=== PATIENT | female | born 1965 | race Caucasian/White ===

== ENCOUNTER 2017-06-02 18:47 | Observation (INO) ==
--- NOTE | 2017-06-02 19:00 | Emergency Department Note ---
Disposition Clinical Impression: Epigastric abdominal pain, Suicidal thoughts Chest pain Qualifiers: Chest pain type: unspecified Qualified Code(s): R07.9 - Chest pain, unspecified Disposition: Still a Patient Condition: Good Instructions: Chest Pain (ED), Abdominal Pain (ED) Reasons to Return/Additional Instructions: Follow-up with your primary care physician in one to 2 days. Discuss setting up outpatient stress test for further evaluation. Information has been provided below for cardiology. Return to the ER for any new or worsening symptoms. Referrals: Krishna Soto, PAC [Primary Care Provider] - Forms: ED Satisfaction Letter, Work/School Release Time of Disposition: 20:25 Abdominal Pain HPI - General Chief Complaint: ED Abdominal Pain Stated Complaint: Abd pain Time Seen by Provider: 06/02/17 18:52 Source: patient, EMS Mode of arrival: ambulatory Limitations: no limitations Nursing Notes Reviewed: Yes Vital Signs Reviewed: Yes - History of Present Illness HPI Narrative: Patient is a 52-year-old female with past medical history of cerebral palsy, COPD, hypertension. She presents today due to chest pain, shortness of breath, abdominal pain. She told nursing staff that she has had chest pain since January. However, she told me that her chest pain started about 4 hours prior to arrival. She describes the pain as sharp, constant pain in the right side of her chest associated with shortness of breath. Denies any nausea, vomiting, sweating. She also admits to epigastric abdominal pain that she describes as sharp in nature as well.. Denies any dysuria, hematuria, vaginal bleeding or discharge Pain Scale: 8 - Related Data Previous Rx's Medication Instructions Recorded Azithromycin [Azithromycin 6-Tab 250 - 500 mg PO DAILY #6 tab 07/18/16 Pack] Promethazine/Dextromethorphan 5 ml PO Q4H PRN #120 ml 07/18/16 [Promethazine-Dm Syrup] predniSONE [Prednisone] 40 mg PO QAM #10 tablet 07/18/16 Azithromycin [Zithromax] 1 applic PO DAILY #6 tablet 07/26/16 Promethazine/Codeine 5 ml PO HS #90 syrup 07/26/16 [Phenergan/Codeine] Ondansetron HCl [Zofran] 4 mg PO Q8H PRN #4 tablet 08/20/16 cephALEXin [Keflex] 500 mg PO BID 5 Days capsule 08/20/16 Allergies Allergy/AdvReac Type Severity Reaction Status Date / Time No Known Allergies Allergy Verified 08/20/16 00:09 All systems ED: reviewed and negative except as stated. Constitutional: Denies: fever Cardiovascular: Reports: chest pain Respiratory: Reports: dyspnea Gastrointestinal: Denies: nausea, vomiting, diarrhea Genitourinary: Denies: urgency, dysuria, frequency, hematuria, discharge Neurological: Denies: weakness, numbness, paresthesias Abdominal Pain PMH - Past Medical History Medical history: Reports: COPD, hypertension, other Female Surgical History: Reports: , orthopedic, other Psychiatric history: Reports: depression - Social History Smoking status: Former smoker Alcohol use: Reports: none Drug use: Reports: none Physical Exam - General Limitations: language barrier General appearance: alert - Head Head exam: atraumatic, normocephalic, normal inspection - Eye Eye exam: Present: normal appearance, PERRL, EOMI - ENT ENT exam: normal exam, normal oropharynx, mucous membranes moist - Neck Neck exam: Present: normal inspection, full ROM, trachea midline - Chest Chest inspection: Present: normal inspection, symmetric chest wall rise, tenderness (Reproducible tenderness on midline and right chest wall). Absent: rash - Respiratory Respiratory exam: Present: normal lung sounds bilaterally - Cardiovascular Cardiovascular exam: Present: regular rate, normal rhythm, normal heart sounds - Abdominal Exam Abdominal exam: Present: soft, tenderness ([id number] epigastric tenderness). Absent: distention, guarding, rebound, rigidity, Green's sign, Rovsing's sign, tenderness at McBurney's Point - Extremities Exam Extremities exam: Present: normal inspection, full ROM. Absent: tenderness, pedal edema - Neurological Exam Neurological exam: Present: alert, oriented X3 - Psychiatric Psychiatric exam: Present: normal affect, normal mood - Skin Skin exam: Present: warm, dry, intact, normal color Course Course Narrative: Patient hypertensive. Otherwise, the rest of the vitals within normal limits. Physical exam showed reproducible right-sided and centered chest wall pain. She had mild to moderate epigastric tenderness. Otherwise, negative Green's, negative McBurney's. She was given aspirin 325 mg. Will perform EKG, chest x- ray, troponin, basic blood work CT of abdomen and pelvis. Will also urinalysis. 21:02 labs showed no major abnormalities. Chest x-ray negative. EKG shows normal sinus rhythm with no acute ST changes. Troponin negative. CT abdomen and pelvis shows no acute intra-abdominal process. On reassessment, the patient states that she does not want to go home and that she has been having thoughts of killing herself. I asked that this was due to pain. She states that she has felt this way for some time. She has a history of anxiety and depression and says that she took herself off these medications a few months ago because she did not feel like taking them anymore. She says that her sister -in-law told her that she needed mental health evaluation today. She says she is having suicidal thoughts but no particular plan. Denies any homicidal thoughts. She is requesting to talk with behavioral health. WIll add on additional medical clearance labs, once back, behavioral health can be called. Patient signed out to Dr. Angelito Martinez for further care. Chest X-Ray 06/02/17 19:12 IMPRESSION: No acute process. Unchanged enlarged cardiomediastinal silhouette. D/ / Deon Cantu MD / Deon Cantu MD Interpreting Provider: Deon Cantu MD Abdomen/Pelvis CT 06/02/17 19:14 IMPRESSION: 1. No acute intra-abdominal abnormality. 2. No acute intrapelvic abnormality. 3. Hepatomegaly. D/ / Malcolm Dutta MD / Malcolm Dutta MD Interpreting Provider: Malcolm Dutta MD Vital Signs Temperature 98.8 F 06/02/17 18:48 Pulse Rate 67 06/02/17 18:48 Respiratory Rate 20 06/02/17 18:48 Blood Pressure 186/108 06/02/17 18:48 O2 Sat by Pulse Oximetry 98 06/02/17 18:48 Temperature 98.8 F 06/02/17 18:48 Pulse Rate 67 06/02/17 18:48 Respiratory Rate 20 02/05/18 18:48 Blood Pressure 186/108 06/02/17 18:48 O2 Sat by Pulse Oximetry 98 06/02/17 18:48 Oxygen Delivery Oxygen Delivery Room Air Abdominal Pain - MDM Narrative Medical decision making narrative: Patient hypertensive. Otherwise, the rest of the vitals within normal limits. Physical exam showed reproducible right-sided and centered chest wall pain. She had mild to moderate epigastric tenderness. Otherwise, negative Green's, negative McBurney's. She was given aspirin 325 mg. Will perform EKG, chest x- ray, troponin, basic blood work CT of abdomen and pelvis. Will also urinalysis. 21:02 labs showed no major abnormalities. Chest x-ray negative. EKG shows normal sinus rhythm with no acute ST changes. Troponin negative. CT abdomen and pelvis shows no acute intra-abdominal process. On reassessment, the patient states that she does not want to go home and that she has been having thoughts of killing herself. I asked that this was due to pain. She states that she has felt this way for some time. She has a history of anxiety and depression and says that she took herself off these medications a few months ago because she did not feel like taking them anymore. She says that her sister -in-law told her that she needed mental health evaluation today. She says she is having suicidal thoughts but no particular plan. Denies any homicidal thoughts. She is requesting to talk with behavioral health. WIll add on additional medical clearance labs, once back, behavioral health can be called. Patient signed out to Dr. Angelito Martinez for further care. - Medical Records Medical records reviewed: Yes I reviewed the patient's medical records. - Lab Data Lab results reviewed: Yes I reviewed the patient's lab results. Result diagrams: 06/02/17 19:35 06/02/17 19:35 Lab Results 06/02/17 06/02/17 06/02/17 Range/Units 19:35 19:35 19:35 WBC 9.5 (4.3-11.1) K/mcL RBC 5.47 H (3.82-4.97) M/mcL Hgb 14.6 (11.5-15.4) g/dL Hct 45.0 H (35.3-44.9) % MCV 82.3 L (83.0-100.0) fL MCH 26.7 L (28.0-33.3) pg MCHC 32.4 (31.6-35.5) g/dL RDW 13.0 (11.5-14.5) % Plt Count 253 (140-400) K/mcL MPV 9.6 (9.4-12.4) fL Immature Gran % 0.4 (0-4) % Seg Neutrophils % 75.6 % Lymphocytes % 18.9 % Monocytes % 4.7 % Eosinophils % 0.3 % Basophils % 0.1 % Neutrophils # 7.2 (1.6-8.9) K/mcL Lymphocytes # 1.8 (0.6-4.6) K/mcL Monocytes # 0.5 (0.0-1.3) K/mcL Eosinophils # 0.0 (0.0-0.6) K/mcL Basophils # 0.0 (0.0-0.2) K/mcL PT (9.4-12.1) Seconds INR APTT (26.0-36.0) Seconds Sodium 139 (136-145) mEq/L Potassium 3.4 L (3.5-5.1) mEq/L Chloride 104 (98-107) mEq/L Carbon Dioxide 27 (23-29) mEq/L BUN 16 (6-20) mg/dL Creatinine 0.71 (0.60-1.20) mg/dL Est GFR ( Amer) > 60 (> 60) Est GFR (Non-Af Amer) > 60 (> 60) BUN/Creatinine Ratio 23 (6-26) Glucose 127 H (70-105) mg/dL Calculated Osmolality 291 (280-300) Calcium 9.1 (8.6-10.3) mg/dL Total Bilirubin 0.4 (0.3-1.0) mg/dL Direct Bilirubin 0.1 (0.0-0.2) mg/dL Indirect Bilirubin 0.3 (0.0-1.2) mg/dL AST 12 L (13-39) Units/L ALT 12 (7-52) Units/L Alkaline Phosphatase 125 H (34-104) Units/L Troponin I < 0.03 (< 0.04) ng/mL Serum Total Protein 7.4 (6.4-8.9) g/dL Albumin 4.0 (3.5-5.7) g/dL Globulin 3.4 (2.4-3.5) g/dL Albumin/Globulin Ratio 1.2 (1.1-2.2) Lipase 11 (11-82) Units/L Urine Color (Yellow) Urine Clarity (Clear) Urine pH (5.0-8.0) pH Units Ur Specific [place] (1.010-1.025) Urine Protein (Neg-Trace) mg/dL Urine Glucose (UA) (Normal) mg/dL Urine Ketones (Negative) mg/dL Urine Blood (Negative) Urine Nitrite (Negative) Urine Bilirubin (Negative) Urine Urobilinogen (Normal) mg/dL Ur Leukocyte Esterase (Negative) Urine Microscopic RBC (0-3) per hpf Urine Microscopic WBC (0-3) per hpf Ur Squamous Epith Cells (None-Few) per lpf Urine Bacteria (None-Few) per hpf Hyaline Casts (None-Few) per lpf Ur Culture Indicated? (NO) Urine Test (Negative) 06/02/17 06/02/17 06/02/17 Range/Units 19:35 19:41 19:41 WBC (4.3-11.1) K/mcL RBC (3.82-4.97) M/mcL Hgb (11.5-15.4) g/dL Hct (35.3-44.9) % MCV (83.0-100.0) fL MCH (28.0-33.3) pg MCHC (31.6-35.5) g/dL RDW (11.5-14.5) % Plt Count (140-400) K/mcL MPV (9.4-12.4) fL Immature Gran % (0-4) % Seg Neutrophils % % Lymphocytes % % Monocytes % % Eosinophils % % Basophils % % Neutrophils # (1.6-8.9) K/mcL Lymphocytes # (0.6-4.6) K/mcL Monocytes # (0.0-1.3) K/mcL Eosinophils # (0.0-0.6) K/mcL Basophils # (0.0-0.2) K/mcL PT 11.2 (9.4-12.1) Seconds INR 1.0 APTT 31.2 (26.0-36.0) Seconds Sodium (136-145) mEq/L Potassium (3.5-5.1) mEq/L Chloride (98-107) mEq/L Carbon Dioxide (23-29) mEq/L BUN (6-20) mg/dL Creatinine (0.60-1.20) mg/dL Est GFR ( Amer) (> 60) Est GFR (Non-Af Amer) (> 60) BUN/Creatinine Ratio (6-26) Glucose (70-105) mg/dL Calculated Osmolality (280-300) Calcium (8.6-10.3) mg/dL Total Bilirubin (0.3-1.0) mg/dL Direct Bilirubin (0.0-0.2) mg/dL Indirect Bilirubin (0.0-1.2) mg/dL AST (13-39) Units/L ALT (7-52) Units/L Alkaline Phosphatase (34-104) Units/L Troponin I (< 0.04) ng/mL Serum Total Protein (6.4-8.9) g/dL Albumin (3.5-5.7) g/dL Globulin (2.4-3.5) g/dL Albumin/Globulin Ratio (1.1-2.2) Lipase (11-82) Units/L Urine Color Yellow (Yellow) Urine Clarity Cloudy A (Clear) Urine pH 6.5 (5.0-8.0) pH Units Ur Specific [place] 1.022 (1.010-1.025) Urine Protein Negative (Neg-Trace) mg/dL Urine Glucose (UA) Normal (Normal) mg/dL Urine Ketones Negative (Negative) mg/dL Urine Blood Moderate H (Negative) Urine Nitrite Negative (Negative) Urine Bilirubin Negative (Negative) Urine Urobilinogen Normal (Normal) mg/dL Ur Leukocyte Esterase Negative (Negative) Urine Microscopic RBC 30-50 H (0-3) per hpf Urine Microscopic WBC 3-5 H (0-3) per hpf Ur Squamous Epith Cells Many H (None-Few) per lpf Urine Bacteria Moderate H (None-Few) per hpf Hyaline Casts None Seen (None-Few) per lpf Ur Culture Indicated? NO (NO) Urine Test Negative (Negative) - Radiology Data Radiology results reviewed: Yes I reviewed the patient's radiology results. Chest X-Ray 06/02/17 19:12 IMPRESSION: No acute process. Unchanged enlarged cardiomediastinal silhouette. D/ / Deon Cantu MD / Deon Cantu MD Interpreting Provider: Deon Cantu MD Abdomen/Pelvis CT 06/02/17 19:14 IMPRESSION: 1. No acute intra-abdominal abnormality. 2. No acute intrapelvic abnormality. 3. Hepatomegaly. D/ / Malcolm Dutta MD / Malcolm Dutta MD Interpreting Provider: Malcolm Dutta MD - EKG Data EKG attestation: Yes I reviewed and interpreted this EKG. EKG results narrative: 06/02/2017 at 19:20. Normal sinus rhythm. Rate 61. CT 164. QRS 96. QTC 420. No acute ST elevation or depression. Left axis deviation. S.B.A.R. - S.B.A.R. Situation: Demographics, MOA Background: Presenting Complaint, Relevant PMH, Meds, & Allergies Assessment: Vital Signs, Course and respsone to treatment, Exam Concerns, Patient/Family Expectation, Pertinant Lab Results, Outstanding Labs Recommendation: Barrier(s) to disposition, Recommendation based on pending studies, treatments, or consults S.B.A.R. Report Given to: Dr. Angelito Martinez
--- NOTE | 2017-06-02 19:15 | Emergency Department Note ---
START Narrative - START START: I examined this patient and my medical decision-making was reviewed with the Resident Physician. I agree with the documented findings, disposition and treatment plan as described except to the extent set forth below. 52 yo F here for upper abd pain for past few days and cp x 2-3 months. will check screening labs and cxr and ct abd pelvis pending disposition
[2017-06-02 19:42] LABS: Hemoglobin 14.6 g/dL (11.5-15.4); Mean Corpuscular HGB Conc 32.4 g/dL (31.6-35.5); Mean Corpuscular Hemoglobin 26.7 pg (28.0-33.3); Mean Corpuscular Volume 82.3 fL (83.0-100.0); Mean Platelet Volume 9.6 fL (9.4-12.4); Platelet Count 253 K/mcL (140-400); Red Blood Count 5.47 M/mcL (3.82-4.97); Segmented Neutrophils % 75.6 %
[2017-06-02 19:43] LABS: Basophils % 0.1 %; Eosinophils % 0.3 %; Immature Granulocytes % 0.4 % (0-4); Lymphocytes # 1.8 K/mcL (0.6-4.6); Lymphocytes % 18.9 %; Monocytes # 0.5 K/mcL (0.0-1.3); Monocytes % 4.7 %; Neutrophils # 7.2 K/mcL (1.6-8.9)
[2017-06-02] MEDS: Aspirin 81 MG TAB.CHEW PO ONE (19:43)
[2017-06-02 19:59] LABS: Bilirubin,Urine Negative (Negative); Blood,Urine Moderate (Negative); Clarity,Urine Cloudy (Clear); Color,Urine Yellow (Yellow); Glucose,Urine (UA) Normal (Normal); Ketones,Urine Negative (Negative); Leukocyte Esterase,Urine Negative (Negative); Nitrite,Urine Negative (Negative); PH,Urine 6.5 pH Units (5.0-8.0); Protein,Urine Negative (Neg-Trace); Specific Gravity,Urine 1.022 (1.010-1.025); Urobilinogen,Urine Normal (Normal)
[2017-06-02 20:03] LABS: Alanine Aminotransferase 12 Units/L (7-52); Albumin/Globulin Ratio 1.2 (1.1-2.2); Alkaline Phosphatase 125 Units/L (34-104); Aspartate Amino Transferase 12 Units/L (13-39); BUN/Creatinine Ratio 23 (6-26); Bilirubin,Direct 0.1 mg/dL (0.0-0.2); Bilirubin,Indirect 0.3 mg/dL (0.0-1.2); Bilirubin,Total 0.4 mg/dL (0.3-1.0); Blood Urea Nitrogen 16 mg/dL (6-20); Calcium 9.1 mg/dL (8.6-10.3); Carbon Dioxide 27 mEq/L (23-29); Chloride 104 mEq/L (98-107); Globulin 3.4 g/dL (2.4-3.5); Glucose 127 mg/dL (70-105); Lipase 11 Units/L (11-82); Osmolality,Calculated 291 (280-300); Potassium 3.4 mEq/L (3.5-5.1); Sodium 139 mEq/L (136-145); Total Protein 7.4 g/dL (6.4-8.9); eGFR For African Americans > 60 (> 60); eGFR For Non-African Americans > 60 (> 60)
[2017-06-02 20:03] LABS: Bacteria,Urine Moderate per hpf (None-Few); Hyaline Casts,Urine None Seen per lpf (None-Few); RBC,Urine 30-50 per hpf (0-3); Squamous Epithelial Cell,Urine Many per lpf (None-Few)
[2017-06-02 20:50] LABS: Prothrombin Time 11.2 Seconds (9.4-12.1)
[2017-06-02 20:53] LABS: Activated Partial Thrombo Time 31.2 Seconds (26.0-36.0)
[2017-06-02 21:27] LABS: Amphetamine Screen,Urine Negative ng/mL (Cutoff=1000); Barbiturate Screen,Urine Negative ng/mL (Cutoff=200); Benzodiazepines Screen,Urine Negative ng/mL (Cutoff=200); Cannabinoid Screen,Urine Negative ng/mL (Cutoff = 50); Cocaine Screen,Urine Negative ng/mL (Cutoff= 300); Opiate Screen,Urine Negative ng/mL (Cutoff=300); Phencyclidine Screen,Urine Negative ng/mL (Cutoff=25)
[2017-06-02 21:42] LABS: Acetaminophen < 1.0 mcg/mL (10-30); Ethanol < 10 mg/dL (0-10); Salicylate < 5.0 mg/dL (15.0-30.0)
[2017-06-02] MEDS ORDERED: *HR* Nalbuphine 20 MG/ML AMPUL IVP PRN (22:39)
--- NOTE | 2017-06-03 03:42 | Emergency Department Note ---
START Narrative - START START: Patient will require placement for hopelessness, helplessness, severe depression. Patient remains on medical suicidal ideations no issues overnight.
[2017-06-03] MEDS ORDERED: *HR* Promethazine 25 MG/ML VIAL IM ONE (04:33)
[2017-06-03] MEDS ORDERED: Naloxone 0.4 MG/ML INJ IVP PRN (07:24)
[2017-06-03] MEDS ORDERED: Acetaminophen 325 MG TABLET PO PRN (07:24)
[2017-06-03] MEDS ORDERED: Ketorolac 30 MG/ML VIAL IVP PRN (07:24)
[2017-06-03] MEDS ORDERED: Ondansetron 4 MG/2 ML VIAL IVP PRN ×2 (07:51→15:35)
--- NOTE | 2017-06-03 07:58 | Internal Med History&Physical ---
Date of Encounter: 06/03/17 Time of Encounter: 07:45 Assessment and Plan (1) Epigastric abdominal pain Current visit: Yes Status: Acute CT scan of the abdomen and pelvis does not show any acute process. We will treat symptomatically. Nothing by mouth for now and will start her on diet as her symptoms improve. We will also get ultrasound of the abdomen to evaluate the gallbladder better. She does have an elevated alkaline phosphatase level. We will check hepatitis viral panel. Moderate risk for complications. (2) Chest pain Current visit: Yes Status: Acute Patient complaining of right-sided chest pain. Could be musculoskeletal in nature. However given her age, we will trend troponins, check lipid profile. Place on telemetry. Will get 2-D echocardiogram. Qualifiers: Chest pain type: other chest pain Qualified Code(s): R07.89 - Other chest pain; R07.8 - Other chest pain (3) Suicidal thoughts Current visit: Yes Status: Acute Patient does appear to have depression and although not actively suicidal to my evaluation, she does express thoughts concerning for suicidal ideation. Will consult psychiatry for evaluation. One-to-one sitter. Internal Medicine - H&P: HPI Chief complaint: Abdominal pain, chest pain, suicidal ideation Admitted From: Emergency Dept Plans for Post Hospital Care: Transfer Psych Facility History of present illness: Ms. Ibarra is a 52 year old female patient with a history of polio, COPD, hypertension presented to the ER with complaints of chest pain and abdominal pain. Symptoms began yesterday morning and patient has had persistent nausea and vomiting associated with it. She describes abdominal pain as midepigastric region and location. Pain was 8 out of 10 in severity. It did not respond to intravenous medications that she received in the ER. However she has not had any new episodes of nausea and vomiting since this morning. She also complained of chest pain. Nonradiating. She reports that it is sharp and present in the right side of the chest. While she was being evaluated in the ER , she also reported suicidal ideation. She presently says that she wishes" she was and this was all over". When asked why she feels this way, she reported that this was due to a lot of things going on with her life. Past Med Surg Social Fam HX - Past Medical History Attestation: Yes The following information was validated with the patient. Medical history: COPD, hypertension, other (Polio) Psychiatric history: depression - Social History Smoking Status: Former smoker Smokeless Tobacco Status: No Alcohol use: none Drug use: none - Additional Family History Additional family history: Reviewed and found to be noncontributory at this time Internal Medicine - H&P: Meds Azithromycin [Azithromycin 6-Tab Pack] 250 - 500 mg PO DAILY #6 tab 07/18/16 [Rx ] Promethazine/Dextromethorphan [Promethazine-Dm Syrup] 5 ml PO Q4H PRN #120 ml [Rx] predniSONE [Prednisone] 40 mg PO QAM #10 tablet 07/18/16 [Rx] Azithromycin [Zithromax] 1 applic PO DAILY #6 tablet 07/26/16 [Rx] Promethazine/Codeine [Phenergan/Codeine] 5 ml PO HS #90 syrup 07/26/16 [Rx] Ondansetron HCl [Zofran] 4 mg PO Q8H PRN #4 tablet 08/20/16 [Rx] cephALEXin [Keflex] 500 mg PO BID 5 Days capsule 08/20/16 [Rx] 3 Allergy/AdvReac Type Severity Reaction Status Date / Time No Known Allergies Allergy Verified 08/20/16 00:09 All Systems PM: A 10-system review of systems was performed and is negative for pertinent findings except as documented above in the HPI. - Constitutional Constitutional: no chills, no fever(s), no night sweats - EENT Eyes: no change in vision, no discharge, no pain, no photophobia Ears: no ear discharge, no ear pain, no tinnitus Nose, mouth and throat: no dysphagia, no nasal discharge, no neck pain, no sore throat - Cardiovascular Cardiovascular ROS IM: chest pain - Respiratory Respiratory: no cough, no dyspnea, no wheezing, no excessive phlegm production - Gastrointestinal Gastrointestinal: abdominal pain, nausea, vomiting, no diarrhea, no hematemesis , no hematochezia, no melena - Genitourinary Genitourinary: no change in urinary stream, no dysuria, no flank pain, no hematuria - Musculoskeletal Musculoskeletal ROS IM: no numbness, no tingling - Neurological Neurological ROS: focal weakness (From polio, ambulates with crutches), no confusion, no convulsions, no numbness, no tingling, no tremor(s) - Constitutional Vitals: Temp Pulse Resp BP Pulse Ox 98.8 F 68 18 166/98 99 06/02/17 18:48 06/03/17 06:27 06/03/17 06:27 06/03/17 06:27 06/03/17 06:27 General appearance: Present: cooperative, mild distress, A&O X 3, answers questions appropriately - Eye Eye exam: Present: EOMI, PERRL, conjuntiva pink, sclera anicteric - Neck Neck exam general surgery: Present: supple, trachea midline. Absent: lymphadenopathy - Respiratory Respiratory exam: Present: CTAB. Absent: accessory muscle use, rales, rhonchi, wheezes - Cardiovascular Cardiovascular exam: Present: RRR, +S1, +S2. Absent: diastolic murmur, gallop, rubs, systolic murmur - GI/Abdominal GI/Abdominal exam: Present: normal bowel sounds, soft, tenderness (Epigastric), no peritoneal signs. Absent: distended - Extremities Exam Extremities exam: Present: warm, radial pulses palpable and symmetrical. Absent : calf tenderness, cyanotic, pedal edema - Neurological Exam Neurological exam: Present: alert, CN II-XII intact. Absent: facial droop, speech deficit - Skin Skin exam: Present: dry, intact Internal Med - H&P Results - Labs CBC & Chem 7: 06/02/17 19:35 06/02/17 19:35 - EKG Data EKG shows normal: sinus rhythm - Impressions Impressions Chest X-Ray 06/02/17 19:12 IMPRESSION: No acute process. Unchanged enlarged cardiomediastinal silhouette. D/ / Deon Cantu MD / Deon Cantu MD Interpreting Provider: Deon Cantu MD Abdomen/Pelvis CT 06/02/17 19:14 IMPRESSION: 1. No acute intra-abdominal abnormality. 2. No acute intrapelvic abnormality. 3. Hepatomegaly. D/ / Malcolm Dutta MD / Malcolm Dutta MD Interpreting Provider: Malcolm Dutta MD
[2017-06-03 08:29] LABS: Chol/HDL Ratio 3.6 (0-4.9)
[2017-06-03 09:44] LABS: Hemoglobin A1C 5.4 %
[2017-06-03] MEDS: 0.9 % Sodium Chloride w KCl 20 MEQ/1,000 ML MLS IVC SCH (12:00)
--- NOTE | 2017-06-03 19:45 | Consult Note ---
Date of Encounter: 06/04/17 Time of Encounter: 18:35 Assessment & Recommendation (1) Mood disorder due to known physiological condition Current visit: Yes Status: Acute Assessment & Recommendation: See complete Mental Health evaluation completed in the past 24 hours in ED listed under Emergency Psychiatric Assessment on 06/02/2017 (2) Major depressive disorder Current visit: Yes Status: Acute Assessment & Recommendation: Rule out this versus Mood Disorder previously mentioned History of Present Illness Patient: new to practice Requesting Physician: Rosana Martines CNP Reason for consult: Suicidal Ideations History of present illness: For additional information, see Mental Health evaluation completed in the past 24 hours in ED listed under Emergency Psychiatric Assessment on 06/02/2017 Ms. Ibarra is a 52 year old female that psychiatry was asked to consult regarding suicidal ideation. Patient had been evaluated the previous night by mental health and there is an psychiatric assessment completed and in the records from the emergency room. Please review that to get additional background information. Patient was physically not feeling well and was very sedated with Zofran for vomiting and nausea. I introduced myself to her. She acknowledged who I was. She made brief eye contact with me. I asked her if she was feeling depressed and she said "yes". That she was not feeling well which made her more depressed , but that she had been depressed since her . I told her that it had been requested of me to come up and talk to her and do a mental health evaluation. She stated that she did not feel like talking to me at this time. I asked her if she was suicidal, and she stated that she did feel like dying since her but had no plans to kill yourself now. She just wanted them to figure out what was wrong with her medically so she would feel better. ( not a typical statement made by a person who was actively trying to /want to physically get better.) Patient has a complicated history of mobility issues secondary to having had polio. I told the patient that someone who works with me had seen her and completed a mental health evaluation the night before. She remembered this. I told that I would talk to her doctor and would follow up with her when we were notified that she was feeling better. I asked if she needed a sitter to be with her for suicide prevention, she said no she was not going to hurt herself. CC: Rosana Martines CNP Past Med Surg Social Fam HX - Past Medical History Medical history: COPD, hypertension, other - Past Psychiatric History Psychiatric history: Reports: anxiety, depression Family psychiatric history: Unknown Family History of Suicide: Unknown - Social History Smoking Status: Former smoker Smokeless Tobacco Status: No Alcohol use: occasionally Drug use: none Current living situation: Home - Independent Activity Level: Uses cane/walker (History of Polio?) Recent Out of Country Travel Within the Last 8 Weeks: No Exposure or Possible Exposure to Illness During Travel: No Medications & Allergies Lisinopril [Zestril] 10 mg PO DAILY 06/03/17 [History] Melatonin 7.5 mg PO HS 06/03/17 [History] Tolterodine Tartrate [Detrol] 2 mg PO BID 06/03/17 [History] 3 Allergy/AdvReac Type Severity Reaction Status Date / Time No Known Allergies Allergy Verified 08/20/16 00:09 Mental Status Exam Patient orientation: Yes Person, Yes Time, Yes Place, Yes Circumstance Level of alertness: Sedated (very) Patient appearance: Disheveled (in hospital bed and gown, covered up to head with blankets) Behavior: uncooperative, withdrawn Psychomotor activity: Slowed Eye contact: Minimal Contact Mood description: Depressed, Other (sedated with medication) Affect description: congruent with mood Speech pattern: Slowed, Slurred Speech volume: Soft/Quiet Thought process: Slowed Thinking Thought content: Yes Suicidal ideation (No active thoughts or plan) Attention span: Unable to Focus, Unable to Sustain Attention Patient reliability: Questionable Historian Intelligence estimate: Average Judgment: Poor Insight: Minimal Results - Vital Signs Vital signs: Temp Pulse Resp BP Pulse Ox 99.7 F H 92 17 164/94 97 06/03/17 19:19 06/03/17 19:19 06/03/17 19:19 06/03/17 19:19 06/03/17 19:19 - Labs Labs: Laboratory Last Values WBC 9.5 K/mcL (4.3-11.1) 06/02/17 19:35 RBC 5.47 M/mcL (3.82-4.97) H 06/02/17 19:35 Hgb 14.6 g/dL (11.5-15.4) 06/02/17 19:35 Hct 45.0 % (35.3-44.9) H 06/02/17 19:35 MCV 82.3 fL (83.0-100.0) L 06/02/17 19:35 MCH 26.7 pg (28.0-33.3) L 06/02/17 19:35 MCHC 32.4 g/dL (31.6-35.5) 06/02/17 19:35 RDW 13.0 % (11.5-14.5) 06/02/17 19:35 Plt Count 253 K/mcL (140-400) 06/02/17 19:35 MPV 9.6 fL (9.4-12.4) 06/02/17 19:35 Immature Gran % 0.4 % (0-4) 06/02/17 19:35 Seg Neutrophils % 75.6 % 06/02/17 19:35 Lymphocytes % 18.9 % 06/02/17 19:35 Monocytes % 4.7 % 06/02/17 19:35 Eosinophils % 0.3 % 06/02/17 19:35 Basophils % 0.1 % 06/02/17 19:35 Neutrophils # 7.2 K/mcL (1.6-8.9) 06/02/17 19:35 Lymphocytes # 1.8 K/mcL (0.6-4.6) 06/02/17 19:35 Monocytes # 0.5 K/mcL (0.0-1.3) 06/02/17 19:35 Eosinophils # 0.0 K/mcL (0.0-0.6) 06/02/17 19:35 Basophils # 0.0 K/mcL (0.0-0.2) 06/02/17 19:35 PT 11.2 Seconds (9.4-12.1) 06/02/17 19:35 INR 1.0 06/02/17 19:35 APTT 31.2 Seconds (26.0-36.0) 06/02/17 19:35 Sodium 139 mEq/L (136-145) 06/02/17 19:35 Potassium 3.4 mEq/L (3.5-5.1) L 06/02/17 19:35 Chloride 104 mEq/L (98-107) 06/02/17 19:35 Carbon Dioxide 27 mEq/L (23-29) 06/02/17 19:35 BUN 16 mg/dL (6-20) 02/05/18 19:35 Creatinine 0.71 mg/dL (0.60-1.20) 06/02/17 19:35 Est GFR ( Amer) > 60 (> 60) 06/02/17 19:35 Est GFR (Non-Af Amer) > 60 (> 60) 06/02/17 19:35 BUN/Creatinine Ratio 23 (6-26) 06/02/17 19:35 Glucose 127 mg/dL (70-105) H 06/02/17 19:35 Est Mean Plasma Glucose 108 mg/dl 06/03/17 07:55 Hemoglobin A1c 5.4 % (-5.6) 06/03/17 07:55 Calculated Osmolality 291 (280-300) 06/02/17 19:35 Calcium 9.1 mg/dL (8.6-10.3) 06/02/17 19:35 Total Bilirubin 0.4 mg/dL (0.3-1.0) 06/02/17 19:35 Direct Bilirubin 0.1 mg/dL (0.0-0.2) 06/02/17 19:35 Indirect Bilirubin 0.3 mg/dL (0.0-1.2) 06/02/17 19:35 AST 12 Units/L (13-39) L 06/02/17 19:35 ALT 12 Units/L (7-52) 06/02/17 19:35 Alkaline Phosphatase 125 Units/L (34-104) H 06/02/17 19:35 Troponin I < 0.03 ng/mL (< 0.04) 06/03/17 14:43 Serum Total Protein 7.4 g/dL (6.4-8.9) 06/02/17 19:35 Albumin 4.0 g/dL (3.5-5.7) 06/02/17 19:35 Globulin 3.4 g/dL (2.4-3.5) 06/02/17 19:35 Albumin/Globulin Ratio 1.2 (1.1-2.2) 06/02/17 19:35 Triglycerides 58 mg/dL (< 150) 06/03/17 07:55 Cholesterol 199 mg/dL (< 200) 06/03/17 07:55 LDL Cholesterol, Calc 132 mg/dL (0-99) H 06/03/17 07:55 VLDL Cholesterol, Calc 12 mg/dL (< 31) 06/03/17 07:55 HDL Cholesterol 55 mg/dL (40-59) 06/03/17 07:55 Cholesterol/HDL Ratio 3.6 (0-4.9) 06/03/17 07:55 Lipase 11 Units/L (11-82) 06/02/17 19:35 Urine Color Yellow (Yellow) 06/02/17 19:41 Urine Clarity Cloudy (Clear) A 06/02/17 19:41 Urine pH 6.5 pH Units (5.0-8.0) 06/02/17 19:41 Ur Specific [place] 1.022 (1.010-1.025) 06/02/17 19:41 Urine Protein Negative mg/dL (Neg-Trace) 06/02/17 19:41 Urine Glucose (UA) Normal mg/dL (Normal) 06/02/17 19:41 Urine Ketones Negative mg/dL (Negative) 06/02/17 19:41 Urine Blood Moderate (Negative) H 06/02/17 19:41 Urine Nitrite Negative (Negative) 06/02/17 19:41 Urine Bilirubin Negative (Negative) 06/02/17 19:41 Urine Urobilinogen Normal mg/dL (Normal) 06/02/17 19:41 Ur Leukocyte Esterase Negative (Negative) 06/02/17 19:41 Urine Microscopic RBC 30-50 per hpf (0-3) H 06/02/17 19:41 Urine Microscopic WBC 3-5 per hpf (0-3) H 06/02/17 19:41 Ur Squamous Epith Cells Many per lpf (None-Few) H 06/02/17 19:41 Urine Bacteria Moderate per hpf (None-Few) H 06/02/17 19:41 Hyaline Casts None Seen per lpf (None-Few) 06/02/17 19:41 Ur Culture Indicated? NO (NO) 06/02/17 19:41 Urine Test Negative (Negative) 06/02/17 19:41 Salicylates < 5.0 mg/dL (15.0-30.0) L 06/02/17 19:35 Urine Opiates Screen Negative ng/mL (Pabaam=404) 06/02/17 19:40 Acetaminophen < 1.0 mcg/mL (10-30) L 06/02/17 19:35 Ur Barbiturates Screen Negative ng/mL (Xroqci=776) 06/02/17 19:40 Ur Phencyclidine Scrn Negative ng/mL (Cutoff=25) 06/02/17 19:40 Ur Amphetamines Screen Negative ng/mL (Gvnwvq=4181) 06/02/17 19:40 U Benzodiazepines Scrn Negative ng/mL (Mwjlbg=353) 06/02/17 19:40 Urine Cocaine Screen Negative ng/mL (Cutoff= 300) 06/02/17 19:40 U Marijuana (THC) Screen Negative ng/mL (Cutoff = 50) 06/02/17 19:40 Ethyl Alcohol < 10 mg/dL (0-10) 06/02/17 19:35 - Impressions Impressions Echocardiogram 06/03/17 08:07 Impressions: LVEF 60%. Mild left ventricular diastolic dysfunction. Normal right ventricular structure and function. No significant valvular dysfunction. No pulmonary hypertension. Left Ventricular Wall Motion: Rest Echo Findings The mid inferior lateral and basal inferior lateral lopez were not visualized. All other wall segments showed normal motion. Findings: Study Quality * Technically adequate exam. ECG Findings * Normal sinus rhythm. Left Ventricle * LVEF 60%. * Normal LV chamber size, wall thickness and function. * Mild left ventricular diastolic dysfunction. Right Ventricle * Normal right ventricular structure and function. Left Atrium * Normal left atrial size. Right Atrium * Normal right atrial size. Aortic Valve * No aortic regurgitation. * Aortic valve not well visualized. * No aortic stenosis. Mitral Valve * No mitral regurgitation. * Normal mitral valve structure. * No mitral stenosis. Tricuspid Valve * Tricuspid valve not well visualized. * No tricuspid regurgitation. Pulmonic Valve * Pulmonic valve is not well visualized. * No pulmonic stenosis. * No pulmonic regurgitation. Pulmonary Artery * Pulmonary artery not well visualized. Aorta * Normally sized aortic root. Pericardium * There is no pericardial effusion present. Interatrial Septum * Interatrial septum not well evaluated. IVC * The IVC is not well evaluated. Abdomen Ultrasound 06/03/17 11:00 IMPRESSION: 1. Cholelithiasis without additional sonographic evidence of acute cholecystitis. 2. Mild diffuse fatty infiltration of the liver. D/ / Isiah Matthews MD / Isiah Matthews MD Interpreting Provider: Isiah Matthews MD Consult Discharge Plan - Plan Additional Instructions: As Dr. Multani noted, and patient told me too tonight, she is not actively suicidal. There is still a question of her medical diagnosis and what is causing her abdominal pain and nausea. Please notify 1A for follow up and reevaluation when the patient is medically stable and discharge is pending for possible admission to a psychiatric facility, if needed at that time. Or if there is a change in her mental health prior to discahrge that needs emergent intervention. She has outpatient mental health treatment already with [facility] Referrals: Krishna Soto PAC [Primary Care Provider] -
--- NOTE | 2017-06-03 20:55 | Electrocardiograph Report ---
[address] [place], [place] [address] Test Date: 2017-06-02 Pat Name: Dalia Ibarra Department: 102 Room: 3B Gender: F Head Charrer: Tiffani : 1965 Requested By: Sukumar Newell Order Number: [id number] Reading MD: Alvarez Roper MD Measurements Intervals [place] Rate: 61 P: 52 RI: 164 QRS: -11 QRSD: 96 T: 30 QT: 416 QTc: 420 Interpretive Statements SINUS RHYTHM Electronically Signed On 06-03-2017 20:53:50 EST by Alvarez Roper MD
[2017-06-04] MEDS: 0.9 % Sodium Chloride w KCl 20 MEQ/1,000 ML MLS IVC SCH ×2 (00:50→16:46)
[2017-06-04 04:55] LABS: Hepatitis A Antibody IgM Nonreactive (Nonreactive); Hepatitis B Core IgM Nonreactive (Nonreactive); Hepatitis B Surface Antigen Nonreactive (Nonreactive); Hepatitis C Virus Antibody Nonreactive (Nonreactive)
--- NOTE | 2017-06-04 14:03 | Internal Med Progress Note ---
Date of Encounter: 06/04/17 Time of Encounter: 10:30 - Assessment and plan (1) Epigastric abdominal pain Current Visit: Yes Status: Acute Assessment and plan: Appears to be resolving. Ultrasound of the abdomen shows cholelithiasis without any acute cholecystitis. Will start patient on clear liquid diet and advance as tolerated. (2) Chest pain Current Visit: Yes Status: Resolved Assessment and plan: No longer having chest pain at this time. Troponins were negative. Echocardiogram shows normal ejection fraction at 60% with mild left ventricular diastolic dysfunction. No significant wall motion abnormalities. Qualifiers: Chest pain type: other chest pain Qualified Code(s): R07.89 - Other chest pain; R07.8 - Other chest pain (3) Suicidal thoughts Current Visit: Yes Status: Resolved Assessment and plan: Denies suicidal ideation at this time. Discussed with psychiatry. Patient does have depression and needs follow-up with psychiatry. This can be done as outpatient as patient does not any suicidal ideation or thoughts currently. Will discontinue one-to-one sitter at this time. - Subjective Interval history: Patient is very somnolent this morning but awakes to verbal commands. Feels that her nausea is much better. Denies any abdominal pain. Denies any suicidal ideation at this time. Is in a better mood today. - Constitutional Vitals: Temp Pulse Resp BP Pulse Ox 100.3 F H 104 16 117/77 93 06/04/17 12:02 06/04/17 12:02 06/04/17 12:02 06/04/17 12:02 06/04/17 12:02 General appearance: Present: cooperative, mild distress, A&O X 3, answers questions appropriately - Neck Neck exam general surgery: Present: supple, trachea midline. Absent: lymphadenopathy - Respiratory Respiratory exam: Present: CTAB. Absent: accessory muscle use, rales, rhonchi, wheezes - Cardiovascular Cardiovascular exam: Present: RRR, +S1, +S2. Absent: diastolic murmur, gallop, rubs, systolic murmur - GI/Abdominal GI/Abdominal exam: Present: normal bowel sounds, soft, no peritoneal signs. Absent: distended, tenderness - Neurological Exam Neurological exam: Present: CN II-XII intact, oriented X3, no focal deficits. Absent: facial droop, speech deficit - Psychiatric Psychiatric exam: Present: normal affect, normal mood - Skin Skin exam: Present: dry, intact Internal Medicine: Result - Labs CBC & Chem 7: 06/02/17 19:35 06/02/17 19:35 Labs: Cardiac Enzymes 06/03/17 Range/Units 14:43 Troponin I < 0.03 (< 0.04) ng/mL - ABG Interpretation ABG results: PT/INR, D-dimer PT 11.2 Seconds (9.4-12.1) 06/02/17 19:35 Consult Discharge Plan - Plan Additional Instructions: As Dr. Multani noted, and patient told me too tonight, she is not actively suicidal. There is still a question of her medical diagnosis and what is causing her abdominal pain and nausea. Please notify 1A for follow up and reevaluation when the patient is medically stable and discharge is pending for possible admission to a psychiatric facility, if needed at that time. Or if there is a change in her mental health prior to discahrge that needs emergent intervention. She has outpatient mental health treatment already with [facility] Referrals: Krishna Soto PAC [Primary Care Provider] -
[2017-06-04] MEDS: traMADol 50 MG TABLET PO PRN (21:49)
[2017-06-05] MEDS: traMADol 50 MG TABLET PO PRN (04:34)
[2017-06-05] MEDS: 0.9 % Sodium Chloride w KCl 20 MEQ/1,000 ML MLS IVC SCH (06:10)
[2017-06-05 10:16] LABS: Basophils % 0.1 %; Eosinophils % 0.1 %; Hematocrit 39.9 % (35.3-44.9); Immature Granulocytes % 0.4 % (0-4); Lymphocytes # 1.6 K/mcL (0.6-4.6); Lymphocytes % 11.8 %; Mean Corpuscular HGB Conc 31.6 g/dL (31.6-35.5); Mean Corpuscular Hemoglobin 26.6 pg (28.0-33.3); Mean Corpuscular Volume 84.2 fL (83.0-100.0); Mean Platelet Volume 10.1 fL (9.4-12.4); Monocytes % 7.3 %; Neutrophils # 11.1 K/mcL (1.6-8.9); Platelet Count 211 K/mcL (140-400); Red Blood Count 4.74 M/mcL (3.82-4.97); Red Cell Distribution Width 13.3 % (11.5-14.5); Segmented Neutrophils % 80.3 %
[2017-06-05 10:24] LABS: Hemoglobin 12.6 g/dL (11.5-15.4)
[2017-06-05 10:33] LABS: Calcium 8.4 mg/dL (8.6-10.3); Carbon Dioxide 24 mEq/L (23-29); Chloride 105 mEq/L (98-107); Potassium 3.8 mEq/L (3.5-5.1); Sodium 135 mEq/L (136-145)
[2017-06-05 10:39] LABS: BUN/Creatinine Ratio 16 (6-26); Blood Urea Nitrogen 10 mg/dL (6-20); Glucose 130 mg/dL (70-105); Osmolality,Calculated 281 (280-300); eGFR For African Americans > 60 (> 60); eGFR For Non-African Americans > 60 (> 60)
[2017-06-05 12:15] VITALS: BP 177/83
--- NOTE | 2017-06-05 12:39 | Discharge Summary ---
Date of Encounter: 06/05/17 Time of Encounter: 12:36 - Discharge Diagnosis (1) Epigastric abdominal pain Priority: Primary Status: Resolved (2) Chest pain Priority: Secondary Status: Resolved Qualifiers: Chest pain type: other chest pain Qualified Code(s): R07.89 - Other chest pain; R07.8 - Other chest pain (3) Suicidal thoughts Priority: Secondary Status: Resolved (4) Major depressive disorder Priority: Secondary Status: Acute Qualifiers: Major depression recurrence: single episode Active/Remission status: currently active Major depression episode severity: moderate Qualified Code( s): F32.1 - Major depressive disorder, single episode, moderate - Discharge Medications Home Medications: Lisinopril [Zestril] 10 mg PO DAILY 06/03/17 [History] Melatonin 7.5 mg PO HS 06/03/17 [History] Tolterodine Tartrate [Detrol] 2 mg PO BID 06/03/17 [History] Allergies/Adverse Reactions: 3 Allergy/AdvReac Type Severity Reaction Status Date / Time No Known Allergies Allergy Verified 08/20/16 00:09 Procedures/tests Complete & Pending: Procedures Performed prior 72 hours Category Date Time Status US abdomen limited [US] Routine Exams 06/03/17 11:00 Completed EV echocardiogram Routine Y 06/03/17 08:07 Completed Date of admission: 06/03/17 06:31 Primary care physician: Krishna Soto Consults: 06/03/17 07:27 Consult to Psychiatry [CONS] Routine Consulting Provider: Kayley Mackenzie Reason for Consult: Suicidal ideation/ Depression Call Completed: Yes 06/03/17 11:59 Consult to Corporate Human Resources Manager [CONS] Routine Reason for SW Consult: suicidal ideation Discharging clinician: Meng Multani Anticipated date of discharge: 06/05/17 - Patient Status Disposition: Home, Self-Care Condition: Good Functional capacity at discharge: uses cane/walker Overall status at discharge: patient is progressing back to baseline - Discharge Instructions Instructions: Chest Pain (DC), Suicide Prevention for Adults (DC) Follow Up With: Krishna Soto PAC [Primary Care Provider] - (Please call and make a follow up appointment in 1 week. ) Additional Instructions: Follow-up appointments: If there is not an appointment listed below, please call your physician and schedule a follow-up appointment. If you have congestive heart failure and your symptoms return, make an appointment with your physician. Medication List: Carry an up to date list of medications you are taking at all time. We have given you an updated medication list including any new medications that you have been prescribed. Please provide that list to your primary provider Symptoms: If your condition changes or you experience any of the following symptoms, notify your physician immediately: Unusual or worsening pain, fever, persistent nausea and vomiting, bleeding, increase in swelling (especially in your legs), sudden weight gain, extreme dizziness, chest pain, increased drainage or redness from a wound or incision. Go to the emergency department if you experience a problem with breathing. Weights: If you have a history of swelling or shortness of breath, weigh yourself daily and notify your physician if you have a weight gain of two or more pounds in one day or 5 or more pounds in a week. If you experience any of the warning signs for stroke: Sudden numbness or weakness of the face, arm or leg; especially on one side of the body, sudden confusion, trouble speaking or understanding, sudden trouble seeing in one or both eyes, sudden trouble walking, dizziness, loss of balance or coordination, sudden sever headache with no cause; Call 911 or go to the emergency room. Stroke is a medical emergency. Some risk factors for stroke: Age, cigarette smoking, diabetes, excessive alcohol consumption, family history , high blood pressure, overweight, physical inactivity, prior stroke, heart attack, diagnosis of carotid artery stenosis or other artery disease. If you smoke, STOP: Smoking or tobacco use significantly increases your risk of heart and lung disease. Your chance of disease greatly increases if you continue to smoke. For more information, call the [place] tobacco quit line for smoking cessation QUIT-NOW ( ) - Diet and Activity Activity: increase activity as tolerated Diet: low fat, low cholesterol, low salt diet Hospital course: Ms. Ibarra is a 52 year old female patient with a history of COPD, hypertension, polio who initially presented to the ER with complaints of chest pain and epigastric pain. She was evaluated with a CT scan of the abdomen and pelvis which did not show any acute process. During her evaluation in the ER, she reported that she wished she was and was severely depressed. Apparently her had recently passed and she is being increased from that. Psychiatric was consulted for possible evaluation and admission to inpatient psychiatric unit. Initially aspirin based on the patient's description of the symptoms, she was recommended to be transferred to psychiatric care after medical clearance. She was hospitalized here for her abdominal pain and nausea. She underwent ultrasound of the abdomen which did not show any acute cholecystitis. She does have cholelithiasis. Her troponins were negative. 2- D echocardiogram did not show any wall motion abnormalities. She has normal ejection fraction of 60%. She was kept nothing by mouth and treated with antiemetics symptomatically. Workup has so far been negative for any acute infections. She did have low- grade fever of uncertain etiology. This has now subsided too. Most likely, she had a viral syndrome which is now resolving. She is now tolerating diet well and is stable to be discharged. Psychiatry has continued to follow the patient. She has not described any active suicidal intent or ideation. Psychiatry recommended that patient can follow up outpatient with her therapist for further management. - Time Spent with Patient Total time spent providing and/or coordinating discharge services: Less than 30 minutes (25 min) - Constitutional Vitals: Temp Pulse Resp BP Pulse Ox 98.3 F 77 19 177/83 96 06/05/17 12:14 06/05/17 12:14 06/05/17 12:14 06/05/17 12:14 06/05/17 12:14 General appearance: Present: cooperative, A&O X 3, no acute distress, obese, answers questions appropriately - Respiratory Respiratory exam: Present: CTAB. Absent: accessory muscle use, rales, rhonchi, wheezes - Cardiovascular Cardiovascular exam: Present: RRR, +S1, +S2. Absent: diastolic murmur, gallop, rubs, systolic murmur - GI/Abdominal GI/Abdominal exam: Present: normal bowel sounds, soft, no peritoneal signs. Absent: distended, tenderness - Extremities Exam Extremities exam: Present: warm, radial pulses palpable and symmetrical. Absent : calf tenderness, cyanotic, pedal edema
--- NOTE | 2017-06-05 17:38 | Psychiatry Progress Note ---
Date of Encounter: 06/05/17 Time of Encounter: 17:00 Subjective Interval history: Mental health had been contacted and consulted previously on this patient. She was never suicidal. She felt depressed, felt like dying if she was in continue in the pain she felt prior to admission for evaluation and management on the medical floor. She also reported feeling depressed since the of her . After the las contact, I made note to let me mental health know when she was being discharged ig they wanted us to come back and reassess if needed. Dr. Multani told me earlier in the day today that she was not suicidal and did not need follow up by us. She was seen by the social sciences lecturer prior to being discharged who thought it may be helpful to have mental health see her again. We received a phone call at approximately 1 o'clock this afternoon asking us to come back to medical floor and see the patient again before she left. When I got up to the floor partially 4:45pm, the patient had been discharged and was she was gone. I spoke to the social sciences lecturer Chang. She said that the patient was not suicidal but did have depression still. She said she had given her community resources for grief counseling and the patient had appointments arranged with outpatient providers for follow up and saw someone on a weekly basis. Results - Vital Signs Vital Signs: Temp Pulse Resp BP Pulse Ox 98.3 F 77 19 177/83 96 06/05/17 12:14 06/05/17 12:14 06/05/17 12:14 06/05/17 12:14 06/05/17 12:14 - Labs Labs: Laboratory Results - last 24 hr 06/05/17 06/05/17 10:07 10:07 WBC 13.8 H RBC 4.74 Hgb 12.6 D Hct 39.9 MCV 84.2 MCH 26.6 L MCHC 31.6 RDW 13.3 Plt Count 211 MPV 10.1 Immature Gran % 0.4 Seg Neutrophils % 80.3 Lymphocytes % 11.8 Monocytes % 7.3 Eosinophils % 0.1 Basophils % 0.1 Neutrophils # 11.1 H Lymphocytes # 1.6 Monocytes # 1.0 Eosinophils # 0.0 Basophils # 0.0 Sodium 135 L Potassium 3.8 Chloride 105 Carbon Dioxide 24 BUN 10 Creatinine 0.61 Est GFR ( Amer) > 60 Est GFR (Non-Af Amer) > 60 BUN/Creatinine Ratio 16 Glucose 130 H Calculated Osmolality 281 Calcium 8.4 L - Impressions ITS Impressions Echocardiogram 06/03/17 08:07 Impressions: LVEF 60%. Mild left ventricular diastolic dysfunction. Normal right ventricular structure and function. No significant valvular dysfunction. No pulmonary hypertension. Left Ventricular Wall Motion: Rest Echo Findings The mid inferior lateral and basal inferior lateral lopez were not visualized. All other wall segments showed normal motion. Findings: Study Quality * Technically adequate exam. ECG Findings * Normal sinus rhythm. Left Ventricle * LVEF 60%. * Normal LV chamber size, wall thickness and function. * Mild left ventricular diastolic dysfunction. Right Ventricle * Normal right ventricular structure and function. Left Atrium * Normal left atrial size. Right Atrium * Normal right atrial size. Aortic Valve * No aortic regurgitation. * Aortic valve not well visualized. * No aortic stenosis. Mitral Valve * No mitral regurgitation. * Normal mitral valve structure. * No mitral stenosis. Tricuspid Valve * Tricuspid valve not well visualized. * No tricuspid regurgitation. Pulmonic Valve * Pulmonic valve is not well visualized. * No pulmonic stenosis. * No pulmonic regurgitation. Pulmonary Artery * Pulmonary artery not well visualized. Aorta * Normally sized aortic root. Pericardium * There is no pericardial effusion present. Interatrial Septum * Interatrial septum not well evaluated. IVC * The IVC is not well evaluated. Abdomen Ultrasound 06/03/17 11:00 IMPRESSION: 1. Cholelithiasis without additional sonographic evidence of acute cholecystitis. 2. Mild diffuse fatty infiltration of the liver. 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 If you have congestive heart failure and your symptoms return, make an appointment with your physician. Medication List: Carry an up to date list of medications you are taking at all time. We have given you an updated medication list including any new medications that you have been prescribed. Please provide that list to your primary provider Symptoms: If your condition changes or you experience any of the following symptoms, notify your physician immediately: Unusual or worsening pain, fever, persistent nausea and vomiting, bleeding, increase in swelling (especially in your legs), sudden weight gain, extreme dizziness, chest pain, increased drainage or redness from a wound or incision. Go to the emergency department if you experience a problem with breathing. Weights: If you have a history of swelling or shortness of breath, weigh yourself daily and notify your physician if you have a weight gain of two or more pounds in one day or 5 or more pounds in a week. If you experience any of the warning signs for stroke: Sudden numbness or weakness of the face, arm or leg; especially on one side of the body, sudden confusion, trouble speaking or understanding, sudden trouble seeing in one or both eyes, sudden trouble walking, dizziness, loss of balance or coordination, sudden sever headache with no cause; Call 911 or go to the emergency room. Stroke is a medical emergency. Some risk factors for stroke: Age, cigarette smoking, diabetes, excessive alcohol consumption, family history , high blood pressure, overweight, physical inactivity, prior stroke, heart attack, diagnosis of carotid artery stenosis or other artery disease. If you smoke, STOP: Smoking or tobacco use significantly increases your risk of heart and lung disease. Your chance of disease greatly increases if you continue to smoke. For more information, call the [place] tobacco quit line for smoking cessation -NOW ( ) Referrals: Krishna Soto, PAC [Primary Care Provider] - (Please call and make a follow up appointment in 1 week. )
== END 2017-06-05 15:30 | disposition home or self-care (01) ==
LOC: EMEROO 18:47 → 3BNU 18:47 → SUATTDRO 06-03 06:31 → 3BNU 06-03 07:09
PROVIDERS: ADMIT Internal Medicine; ATTEND Internal Medicine